=== PATIENT | female | born 1990 | race Caucasian/White ===

== ENCOUNTER 2016-10-16 11:40 | Emergency (ER) | payer MEDICAID ==
[~2016-10-16] VITALS: Ht 162.6 cm; Wt 73.5 kg
[2016-10-16 11:44] VITALS: BP 152/86
[2016-10-16] MEDS ORDERED: KETOROLAC TROMETH 60MG/2ML VIAL IM ONE (13:30)
== END 2016-10-16 14:02 | disposition home or self-care (01) ==
LOC: ER 11:40
DX: S39.012A Strain of muscle, fascia and tendon of lower back, initial encounter (principal); S10.93XA Contusion of unspecified part of neck, initial encounter; S30.1XXA Contusion of abdominal wall, initial encounter; V43.62XA Car passenger injured in collision with other type car in traffic accident, initial encounter; Y93.89 Activity, other specified; Y92.89 Other specified places as the place of occurrence of the external cause; Y99.8 Other external cause status
CPT/HCPCS: 96372; 99283; J1885

== ENCOUNTER 2023-07-03 20:44 | Emergency (ER) | payer MEDICAID ==
[~2023-07-03] VITALS: Ht 152.4 cm; Wt 61.8 kg
[2023-07-03] MEDS: DICYCLOMINE HCL (10MG/ML) 2 ML AMPULE IM ONE (21:44)
[2023-07-03] MEDS: ONDANSETRON HCL 4 MG/2 ML VIAL IM ONE (21:44)
[2023-07-03 22:42] VITALS: TEMP 98.1
[2023-07-03 22:45] VITALS: PULSE 72; RESP 16; O2SAT 100
[2023-07-03 22:47] LABS: Urine Bacteria None Seen /hpf (None Seen)
[2023-07-03 22:52] LABS: Urine Blood Negative /uL (Negative); Urine Clarity Turbid (Clear); Urine Color Light-Yellow (Yellow); Urine Mucus FEW (None Seen); Urine Protein, UAD 1+ (Negative); Urine Specific Gravity 1.029 (1.001-1.035); Urine Urobilinogen Normal (Negative); Urine WBC 18 /hpf (0 - 5); Urine pH 5.5 (5.0-9.0)
[2023-07-04] VITALS: BP 135/69; PULSE 59; RESP 15; O2SAT 98
[2023-07-04] MEDS: METOCLOPRAMIDE HCL 10 MG TAB PO ONE (00:05)
[2023-07-04] MEDS: NITROFURANTOIN 100 mg CAP PO ONE (00:05)
[2023-07-04] MEDS ORDERED: ACET500T58 PO (00:19)
[2023-07-04] MEDS ORDERED: DICY10CA PO (00:19)
[2023-07-04] MEDS ORDERED: ZOFR4T PO (00:19)
[2023-07-04] MEDS ORDERED: METO-281 PO (00:19)
== END 2023-07-04 00:56 | disposition home or self-care (01) ==
LOC: EDBD 20:44 → ER 20:44
DX: A05.9 Bacterial foodborne intoxication, unspecified (principal); N39.0 Urinary tract infection, site not specified
CPT/HCPCS: 81001; 96372; 99284; J0500; J2405; J8597